=== PATIENT | female | born 1965 | race Caucasian/White ===

== ENCOUNTER 2021-01-03 22:15 | Emergency (ER) | payer SELFPAY ==
[~2021-01-03 22:15] MED LIST: CARAFATE S500 MG/TSP PO; FLOMAX0.4 MG PO; NEXIUM PO; NORCO 5-325 TA1 EACH PO; ONDANSETRON ODT4 MG SL; THRIVE TD
[2021-01-03 23:49] LABS: BILIRUBIN NEGATIVE (NEGATIVE); BLOOD NEGATIVE Ery/uL (NEGATIVE); CLARITY CLEAR (CLEAR); COLOR YELLOW (YELLOW); GLUCOSE (U) NORMAL (NORMAL); LEUKOCYTES 2+ Leu/uL (NEGATIVE); NITRITE NEGATIVE (NEGATIVE); PROTEIN NEGATIVE (NEGATIVE); SPECIFIC GRAVITY 1.025 (1.001-1.030); UROBILINOGEN 0.2 mg/dL (0.2-1.0); pH 5.5 (5.0-9.0)
[2021-01-03 23:56] LABS: URINARY RBC RARE
[2021-01-03 23:57] LABS: BACTERIA 2+
[2021-01-04 00:54] LABS: BASOPHIL 0.4 % (0-2); EOSINOPHIL 3.6 % (0-5); HCT 46.1 % (37.0-47.0); HGB 14.7 g/dl (12.5-16.0); LYMPHOCYTE 42.3 % (15-48); MCH 28.9 pg (25.0-31.0); MCHC 31.9 g/dL (32.0-36.0); MCV 90.6 fL (78.0-100.0); MONOCYTE 11.7 % (0-12); MPV 11.4 fL (6.0-9.5); NEUTROPHIL 41.8 % (41-80); NRBC 0; RBC 5.09 M/uL (4.20-5.40); RDW 15.9 % (11.5-14.0); WBC 5.1 K/uL (4.0-10.5)
[2021-01-04 01:15] LABS: PLT 88 K/uL (150-400)
[2021-01-04 01:16] LABS: ALBUMIN 3.8 g/dL (3.4-5.0); BILIRUBIN - TOTAL 0.3 mg/dL (0.2-1.0); BUN/CREAT RATIO (CALC) 21.3 RATIO; CREATININE 0.75 mg/dL (0.51-0.95); GLOBULIN (CALCULATION) 3.9 g/dL; POTASSIUM 4.1 mmol/L (3.5-5.1); TOTAL PROTEIN 7.7 g/dL (6.4-8.2)
[2021-01-04 01:28] LABS: LACTIC ACID 0.7 mmol/L (0.4-1.9)
[2021-01-04] MEDS ORDERED: ONDANSETRON ODT4 MG SL ×2 (02:32→04:11)
[2021-01-04] MEDS ORDERED: TRAMADOL HCL50 MG PO ×2 (02:32→04:11)
[2021-01-04] MEDS ORDERED: BACTRIM DS TAB1 EACH PO ×2 (02:32→04:11)
== END 2021-01-04 04:20 | disposition home or self-care (01) ==
LOC: FER 22:15
PROVIDERS: Emergency Medicine Emergency Medical Services
DX: U07.1 COVID-19 (principal); Z23 Encounter for immunization; N10 Acute pyelonephritis; K21.9 Gastro-esophageal reflux disease without esophagitis; I10 Essential (primary) hypertension; F17.290 Nicotine dependence, other tobacco product, uncomplicated
CPT/HCPCS: 36415; 71045; 80053; 81001; 83605; 83690; 84145; 85025; J1170; J2405; J7030; M0243; Q0244

== ENCOUNTER 2021-03-24 20:02 | Emergency (ER) | payer SELFPAY ==
[~2021-03-24 20:02] MED LIST changes: +BACTRIM DS TAB1 EACH PO; +TRAMADOL HCL50 MG PO
[2021-03-24 21:26] LABS: BASOPHIL 0.4 % (0-2); EOSINOPHIL 1.8 % (0-5); HCT 45.6 % (37.0-47.0); HGB 14.8 g/dl (12.5-16.0); LYMPHOCYTE 38.5 % (15-48); MCH 29.4 pg (25.0-31.0); MCHC 32.5 g/dL (32.0-36.0); MCV 90.7 fL (78.0-100.0); MONOCYTE 12.3 % (0-12); MPV 11.7 fL (6.0-9.5); NRBC 0; RBC 5.03 M/uL (4.20-5.40); WBC 5.5 K/uL (4.0-10.5)
[2021-03-24 21:28] LABS: PLT 93 K/uL (150-400)
[2021-03-24 21:30] LABS: BILIRUBIN - TOTAL 0.8 mg/dL (0.2-1.0); BUN/CREAT RATIO (CALC) 27.8 RATIO; CREATININE 0.72 mg/dL (0.51-0.95); GLOBULIN (CALCULATION) 3.7 g/dL; POTASSIUM 3.6 mmol/L (3.5-5.1); TOTAL PROTEIN 7.7 g/dL (6.4-8.2)
[2021-03-24 21:39] LABS: BILIRUBIN NEGATIVE (NEGATIVE); BLOOD NEGATIVE Ery/uL (NEGATIVE); CLARITY CLEAR (CLEAR); COLOR YELLOW (YELLOW); GLUCOSE (U) NORMAL (NORMAL); LEUKOCYTES 1+ Leu/uL (NEGATIVE); NITRITE NEGATIVE (NEGATIVE); PROTEIN NEGATIVE (NEGATIVE); UROBILINOGEN 0.2 mg/dL (0.2-1.0)
[2021-03-24 21:44] LABS: BACTERIA TRACE; TRANSITIONAL EPITHELIAL CELLS RARE
[2021-03-24 21:47] LABS: AMYLASE 39 U/L (25-115); LIPASE 131 U/L (73-393)
[2021-03-24] MEDS ORDERED: NAPROXEN500 MG PO (22:58)
[2021-03-24] MEDS ORDERED: BACLOFEN 10MG T10 MG PO (22:58)
[2021-03-24] MEDS ORDERED: ZOFRAN4 M1 PO (22:59)
== END 2021-03-24 23:34 | disposition home or self-care (01) ==
LOC: FER 20:02
PROVIDERS: Internal Medicine; Nurse Practitioner Family
DX: M54.42 Lumbago with sciatica, left side (principal); E11.9 Type 2 diabetes mellitus without complications; I10 Essential (primary) hypertension; F17.290 Nicotine dependence, other tobacco product, uncomplicated
CPT/HCPCS: 36415; 72131; 80053; 81001; 82150; 83690; 85025; 87088; J1100; J1885